=== PATIENT | female | born 1965 | race African-American/Black ===

== ENCOUNTER 2023-08-28 16:56 | Emergency (ER) | payer OTHER ==
[~2023-08-28 16:56] MED LIST: Iopamidol 370 76% 100 ML VIAL ONE
[2023-08-28] MEDS ORDERED: HYDROcodone/Acetaminophen 5/325 mg Tablet ONE (17:48)
[2023-08-28 18:05] LABS: #Eosinphils 0.1 thou/uL (0.0-0.7); #Monocytes 0.8 thou/uL (0.11-0.59); #Neutrophils 1.4 thou/uL (1.40-6.50); %Eosinophils 1.7 % (0.0-10.0); %Lymphocytes 43.5 % (21.0-51.0); %Neutrophils 34.6 % (42.0-75.0); Hematocrit 41.5 % (36.0-47.0); Mean Corpuscular HGB CONC 31.3 g/dL (32.0-36.0); Mean Corpuscular Volume 89.2 fl (78.0-98.0); Mean Platelet Volume 10.4 fL (7.4-10.4); Platelet Count 263 10x3/uL (130-400); RBC Distribution Width 12.2 % (11.5-14.5); Red Blood Cell (RBC) Count 4.65 mill/uL (4.20-5.40); White Blood Cell (WBC) Count 4.1 10x3/uL (4.8-10.8)
[2023-08-28 18:30] LABS: ALT (SGPT) 12 U/L (8-55); AST (SGOT) 20 U/L (5-34); Alkaline Phosphatase 72 U/L (40-110); Anion Gap 13 mmol/L (10-20); BUN (Urea Nitrogen) 14 mg/dL (9.8-20.1); Bilirubin, Total 0.5 mg/dL (0.2-1.2); Calc. Creatinine Clearance 0 mL/min (70-130); Calcium 8.9 mg/dL (7.8-10.44); Carbon Dioxide 20 mmol/L (22-29); Chloride 108 mmol/L (98-107); Estimated GFR 76; Globulin 3.7 g/dL (2.4-3.5); Glucose 86 mg/dL (70-105); Lipase 33 U/L (8-78); Potassium 4.4 mmol/L (3.5-5.1); Protein, Total 7.7 g/dL (6.0-8.3); Sodium 137 mmol/L (136-145)
[2023-08-28 18:50] LABS: Troponin I Less than 0.010 ng/mL (< 0.028)
[2023-08-28] MEDS ORDERED: Morphine 4 MG/ML VIAL ONE (20:38)
[2023-08-28 20:45] LABS: Bacteria/HPF None Seen HPF (None Seen); Bilirubin Negative (Negative); Blood, Urine Negative (Negative); CAUTI Indications for Culture Pelvic or flank pain; Clarity Clear (Clear); Glucose, Urine (Dipstick) Normal (Negative); Ketone, Urine Negative (Negative); Leukocyte Negative Leu/uL (Negative); Nitrite Negative (Negative); Protein, Urine (Dipstick) Negative (Neg-Trace); RBC/HPF None Seen HPF (0-3); Specific Gravity, Urine 1.014 (1.002-1.036); Squamous Epithelial 0-3 HPF (0-3); Urobilinogen Normal mg/dL (Less than 2); WBC/HPF 0-3 HPF (0-3)
[2023-08-28 20:47] LABS: Urine Culture Reflex No No
== END 2023-08-28 21:59 | disposition home or self-care (01) ==
LOC: ERS 16:56
DX: J42 Unspecified chronic bronchitis (principal); I10 Essential (primary) hypertension; F17.200 Nicotine dependence, unspecified, uncomplicated
CPT/HCPCS: 36415; 71045; 74177; 80053; 81001; 83690; 84484; 85025; 93005; 96374; J2270; Q9967

== ENCOUNTER 2023-09-08 07:53 | Outpatient (CLI) | payer OTHER | END 2023-09-08 07:54 | disposition home or self-care (01) | LOC: ULT 07:53 | PROVIDERS: ATTEND Nurse Practitioner Family | DX: Z23 Encounter for immunization (principal); Z01.419 Encounter for gynecological examination (general) (routine) without abnormal findings; Z12.31 Encounter for screening mammogram for malignant neoplasm of breast; Z12.11 Encounter for screening for malignant neoplasm of colon; K43.9 Ventral hernia without obstruction or gangrene; M79.631 Pain in right forearm; N32.81 Overactive bladder; M54.41 Lumbago with sciatica, right side; M54.42 Lumbago with sciatica, left side; M25.50 Pain in unspecified joint; F31.9 Bipolar disorder, unspecified; K21.9 Gastro-esophageal reflux disease without esophagitis; G25.81 Restless legs syndrome; G89.4 Chronic pain syndrome; B35.1 Tinea unguium; R10.84 Generalized abdominal pain; R10.32 Left lower quadrant pain; R94.6 Abnormal results of thyroid function studies; R23.3 Spontaneous ecchymoses; R06.83 Snoring; Z79.899 Other long term (current) drug therapy | CPT/HCPCS: 76700 ==